=== PATIENT | male | born 1970 | race Caucasian/White ===

== ENCOUNTER 2020-04-13 06:47 | Emergency (ER) | payer OTHER ==
[~2020-04-13] VITALS: Ht 177.8 cm; Wt 118.1 kg
[2020-04-13 07:07] VITALS: Ht 177.8 cm; Wt 118.1 kg
[2020-04-13 08:32] LABS: BASOPHIL % 0.3 % (0-2); PLATELET COUNT 216 x10^3mcL (130-400); RED CELL DISTRIBUTION WIDTH 13.6 % (11.5-14.5)
[2020-04-13 08:40] LABS: CALCIUM 8.2 mg/dL (8.5-10.1); CARBON DIOXIDE 26.2 mmol/L (21-32); CHLORIDE SERUM 105 mmol/L (98-107); CREATININE SERUM 1.1 mg/dL (0.7-1.3); GFR1 > 60 mL/min; GLUCOSE SERUM 124 mg/dL (74-106); POTASSIUM SERUM 4.2 mmol/L (3.5-5.1); SODIUM SERUM 138 mmol/L (136-145)
[2020-04-13 08:44] LABS: ALBUMIN 3.6 g/dL (3.4-5.0); ALKALINE PHOSPHATASE 63 U/L (46-116); ALT/SGPT 29 U/L (16-63); AST/SGOT 12 U/L (15-37); BILIRUBIN TOTAL 0.49 mg/dL (0.20-1.00); LIPASE 137 IU/L (73-393); TOTAL PROTEIN, SERUM 6.8 g/dL (6.4-8.2)
[2020-04-13 09:13] VITALS: BP 118/81
== END 2020-04-13 09:14 | disposition home or self-care (01) ==
LOC: ED 06:47
PROVIDERS: Emergency Medicine
DX: N20.0 Calculus of kidney (principal); I10 Essential (primary) hypertension; E78.5 Hyperlipidemia, unspecified
CPT/HCPCS: J1885; J2270; J2405; J7030

== ENCOUNTER → 2020-09-16 | Outpatient (CLI) | payer OTHER | END | disposition home or self-care (01) | LOC: NM 06:55 | PROVIDERS: ATTEND Internal Medicine Cardiovascular Disease | DX: I45.10 Unspecified right bundle-branch block (principal) | CPT/HCPCS: A9500; J2785 ==